=== PATIENT | male | born 1975 | race American Indian/Alaskan Native ===

== ENCOUNTER 2020-07-06 02:40 | Emergency (ER) | payer SELFPAY ==
[2020-07-06] MEDS ORDERED: HYDROcodone/ACETAMINOPHEN 5-325 MG TAB ONE (04:56)
[2020-07-06] MEDS ORDERED: cloNIDine 0.1 MG TAB ONE (04:57)
== END 2020-07-06 07:05 | disposition home or self-care (01) ==
LOC: ED 02:40
DX: R51.9 Headache, unspecified (principal); Z53.21 Procedure and treatment not carried out due to patient leaving prior to being seen by health care provider